=== PATIENT | female | born 1955 | race African-American/Black ===

== ENCOUNTER 2021-04-05 16:51 | Outpatient (CLI) | payer MEDICARE | END 2021-04-05 16:52 | disposition home or self-care (01) | LOC: BURRAD 16:51 | PROVIDERS: ATTEND Family Medicine | DX: M25.551 Pain in right hip (principal); M25.571 Pain in right ankle and joints of right foot; M79.89 Other specified soft tissue disorders; M19.071 Primary osteoarthritis, right ankle and foot; M21.41 Flat foot [pes planus] (acquired), right foot ==

== ENCOUNTER 2021-06-07 10:05 | Emergency (ER) | payer MEDICARE ==
[2021-06-07 11:14] LABS: ALT (SGPT) 14 U/L (8-55); AST (SGOT) 13 U/L (5-34); Albumin 3.9 g/dL (3.4-4.8); Alkaline Phosphatase 106 U/L (40-110); Anion Gap 16 mmol/L (10-20); BUN (Urea Nitrogen) 10 mg/dL (9.8-20.1); Bilirubin, Total 0.6 mg/dL (0.2-1.2); Calc. Creatinine Clearance 0 mL/min (70-130); Calcium 10.8 mg/dL (7.8-10.44); Carbon Dioxide 27 mmol/L (23-31); Chloride 98 mmol/L (98-107); Globulin 4.1 g/dL (2.4-3.5); Glucose 110 mg/dL (80-115); Potassium 4.2 mmol/L (3.5-5.1); Sodium 137 mmol/L (136-145)
[2021-06-07 11:19] LABS: Lymphocytes 25 % (21-51); MDiff Complete? YES; Mean Corpuscular HGB CONC 30.2 g/dL (32.0-36.0); Mean Corpuscular Volume 89.5 fL (78.0-98.0); Mean Platelet Volume 7.1 fL (7.4-10.4); Monocytes 6 % (0-10); Neutrophil 69 % (42-75); Platelet Count 339 thou/uL (130-400); RBC Distribution Width 13.7 % (11.5-14.5); Red Blood Cell (RBC) Count 4.82 mill/uL (4.20-5.40); White Blood Cell (WBC) Count 11.7 thou/uL (4.8-10.8)
[2021-06-07 11:24] LABS: Prothrombin Time 13.1 sec (12.0-14.7)
[2021-06-07 11:25] LABS: PTT 28.8 sec (22.9-36.1)
[2021-06-07] MEDS ORDERED: Ketorolac Tromethamine 30 MG/ML VIAL ONE (11:27)
[2021-06-07] MEDS ORDERED: Fentanyl 100 MCG/2 ML VIAL ONE (11:27)
== END 2021-06-07 12:17 | disposition home or self-care (01) ==
LOC: BURERS 10:05
DX: M62.838 Other muscle spasm (principal); K08.89 Other specified disorders of teeth and supporting structures; I10 Essential (primary) hypertension; R51.9 Headache, unspecified; R22.0 Localized swelling, mass and lump, head; K21.9 Gastro-esophageal reflux disease without esophagitis; J45.909 Unspecified asthma, uncomplicated; Z79.899 Other long term (current) drug therapy
CPT/HCPCS: 36415; 70450; 80053; 85025; 85610; 85730; 93005; 94760; 96374; 96375; J1885; J3010

== ENCOUNTER 2021-08-19 12:10 | Emergency (ER) | payer MEDICARE ==
[2021-08-19] MEDS ORDERED: Cyclobenzaprine 10 MG TAB ONE ×2 (12:53)
[2021-08-19] MEDS ORDERED: HYDROcodone/Acetaminophen 5/325 mg Tablet ONE (12:53)
[2021-08-19 13:37] LABS: Bilirubin Negative (Negative); Blood, Urine Negative (Negative); Clarity Clear (Clear); Glucose, Urine (Dipstick) Negative (Negative); Ketone, Urine Negative (Negative); Leukocyte Negative (Negative); Nitrite Negative (Negative); Protein, Urine (Dipstick) 30 mg/dL (Neg-Trace); Specific Gravity, Urine 1.015 (1.005-1.030)
[2021-08-19] MEDS ORDERED: Ketorolac Tromethamine 30 MG/ML VIAL ONE (13:38)
[2021-08-19 13:43] LABS: Bacteria/HPF None Seen HPF (None Seen); Mucous/LPF 1+ LPF (<2+); RBC/HPF None Seen HPF (0-3); Squamous Epithelial 0-3 HPF (0-3); WBC/HPF None Seen HPF (0-3)
== END 2021-08-19 14:02 | disposition home or self-care (01) ==
LOC: BURERS 12:10
DX: M54.42 Lumbago with sciatica, left side (principal); M54.41 Lumbago with sciatica, right side; M17.0 Bilateral primary osteoarthritis of knee; I10 Essential (primary) hypertension; K21.9 Gastro-esophageal reflux disease without esophagitis; J45.909 Unspecified asthma, uncomplicated
CPT/HCPCS: 81003; 81015; 96372; 99283; J1885